=== PATIENT | female | born 1945 | race Caucasian/White ===

== ENCOUNTER 2017-05-21 10:43 | Emergency (ER) | payer MEDICARE ==
--- NOTE | 2017-05-21 12:58 | UC ---
Abdominal Pain Female HPI - HPI Summary HPI Summary: SEVERAL DAYS OF LOWER ABDOMINAL PAIN AND CRAMPING. ALSO HAS SOME LOW BACK PAIN AND NAUSEA. NO FEVER. NO PAIN WITH URINATION BUT DOES HAVE SOME FREQUENCY. - History of Current Complaint Chief Complaint: UCAbdominalPain Stated Complaint: BACK PAIN Time Seen by Provider: 05/21/17 12:35 Hx Obtained From: Patient Onset/Duration: Gradual Onset, Lasting Days, Still Present Timing: Constant Severity Initially: Moderate Severity Currently: Moderate Pain Intensity: 6 Pain Scale Used: 0-10 Numeric Location: Epigastric, Suprapubic Radiates: Yes Radiates to: Flank Character: Cramping Aggravating Factor(s): Nothing Alleviating Factor(s): Nothing Associated Signs and Symptoms: Positive: Back Pain, Urinary Symptoms, Nausea. Negative: Fever, Cough, Chest Pain, Dizzy, Constipation, Blood in Stool, Decreased Appetite, Vaginal Bleeding, Vaginal Discharge, Vomiting, Diarrhea Allergies/Adverse Reactions: Allergies Allergy/AdvReac Type Severity Reaction Status Date / Time No Known Allergies Allergy Verified 07/24/15 13:45 Home Medications: Home Medications Aspirin [Aspirin 81 MG TAB] 81 mg PO DAILY 05/21/17 [History Confirmed 05/21/17] Lisinopril TAB* [Prinivil TAB 5 MG*] 5 mg PO DAILY 05/21/17 [History Confirmed 05/21/17] Multiple Vitamin [Multivitamins] 1 cap PO DAILY 05/21/17 [History Confirmed ] PMH/Surg Hx/FS Hx/Imm Hx Cardiovascular History: Hypertension - Surgical History Surgical History: Yes Surgery Procedure, Year, and Place: CYST REMOVED FROM Back and elbow cateract- may 2015 - Family History Known Family History: Positive: Cardiac Disease, Hypertension, Diabetes - Social History Alcohol Use: Occasionally Alcohol Amount: 1-2 PER WEEK Substance Use Type: None Smoking Status (MU): Current Every Day Smoker Have You Smoked in the Last Year: No Review of Systems Constitutional: Negative Respiratory: Negative Cardiovascular: Negative Gastrointestinal: Abdominal Pain, Nausea Genitourinary: Frequency All Other Systems Reviewed And Are Negative: Yes Physical Exam Triage Information Reviewed: Yes Appearance: Well-Appearing, No Pain Distress, Well-Nourished Vital Signs: Initial Vital Signs Temp 98.1 F 05/21/17 11:29 Pulse 79 05/21/17 11:29 Resp 16 05/21/17 11:29 BP 120/75 05/21/17 11:29 Pulse Ox 99 05/21/17 11:29 Vital Signs Reviewed: Yes Eyes: Positive: Conjunctiva Clear ENT: Positive: Hearing grossly normal Neck: Positive: Supple Respiratory Exam: Normal Cardiovascular Exam: Normal Abdomen Description: Positive: Soft, CVA Tenderness (R), Guarding - WITH PALPATION SUPRAPUBIC AND EPIGASTRIC REGIONS, Other: - NO REBOUND OR RIGIDITY. Negative: CVA Tenderness (L), Distended Bowel Sounds: Positive: Present Musculoskeletal: Positive: No Edema Neurological: Positive: Alert Psychological: Positive: Age Appropriate Behavior Skin: Negative: rashes Diagnostics - Laboratory Diagnostic Studies Completed/Ordered: URINE DIP SP. GR 1.005, 1+ KETONES Abd Pain Female Course/Dx - Differential Dx/Diagnosis Differential Diagnosis: Appendicitis, Pancreatitis, Renal Colic, Urinary Tract Infection Provider Diagnoses: ABDOMINAL PAIN, NAUSEA - Physician Notification/Consults Discussed Care of Patient With: Alexi Howell - TO [facility] BY PRIVATE CAR Time Discussed With Above Provider: 13:17 Instructed by Provider To: Will See In ED Discharge - Discharge Plan Condition: Stable Disposition: AGAINST MEDICAL ADVICE Referrals: Saurav Egan MD [Primary Care Provider] - If Needed
[2017-05-21 13:15] VITALS: BP 134/83
== END 2017-05-21 13:15 | disposition left against medical advice (07) ==
LOC: UCEAST 10:43
DX: R10.13 Epigastric pain (principal); R10.30 Lower abdominal pain, unspecified; R11.0 Nausea; I10 Essential (primary) hypertension; Z72.0 Tobacco use
CPT/HCPCS: 81003; 99212; G0463

== ENCOUNTER 2017-05-21 13:35 | Emergency (ER) | payer MEDICARE ==
[2017-05-21 15:19] LABS: Hematocrit 45 % (35-47); Hemoglobin 14.9 g/dl (12.0-16.0); Mean Corpuscular HGB Conc 34 g/dl (31-36); Mean Corpuscular Hemoglobin 32 pg (27-31); Mean Corpuscular Volume 97 fL (80-97); Mean Platelet Volume 7 um3 (7.4-10.4); Red Blood Count 4.61 10^6/ul (4.0-5.4); Red Cell Distribution Width 14 % (10.5-15); White Blood Count 7.2 10^3/ul (3.5-10.8)
[2017-05-21 15:34] LABS: Albumin 4.6 g/dL (3.2-5.2); C Reactive Protein 24.75 mg/L (< 5.00); Calcium 10.1 mg/dL (8.6-10.3); EGFR African American 98.2 (>60); EGFR Non-African American 76.4 (>60); Globulin 3.5 g/dL (2-4); Potassium 3.8 mmol/L (3.5-5.0); Total Bilirubin 0.4 mg/dL (0.2-1.0); Total Protein 8.1 g/dL (6.4-8.9)
[2017-05-21 15:55] LABS: Urine Bilirubin Negative (Negative); Urine Glucose Negative (Negative); Urine Nitrite Negative (Negative)
[2017-05-21] MEDS ORDERED: Iohexol 300* (CONTRAST) 10 ML SDV IV ONE (16:27)
--- NOTE | 2017-05-21 17:11 | RAD ---
CLINICAL HISTORY: Abdominal pain COMPARISON: July 24, 2015 TECHNIQUE: Multiple contiguous axial CT scans were obtained of the abdomen and pelvis after the administration of intravenous contrast. Coronal and sagittal multiplanar reformations are submitted for review. Oral contrast was administered. Delayed images were obtained through the abdomen and pelvis. FINDINGS: LUNG BASES: The lung bases are clear. LIVER: The liver is diffusely low in attenuation compared to the spleen. There are no focal hepatic parenchymal masses. BILE DUCTS: There is no intrahepatic or extrahepatic biliary dilatation. GALLBLADDER: The gallbladder is normal, without pericholecystic inflammatory change. PANCREAS: The pancreas is normal, without mass or ductal dilatation. SPLEEN: Normal in size and appearance. UPPER GI TRACT: Evaluation of the gastrointestinal tract is limited by incomplete gastric distention. The upper GI tract is unremarkable. SMALL BOWEL AND MESENTERY: The small bowel is normal in contour, course, and caliber. There is no obstruction or dilatation. There is a fat attenuation lesion of the intraperitoneal fat inferiorly and anteriorly measuring approximately 7.4 x 2.6 x 6.6 cm in size. This hematoma identified retrospectively the previous examination and has slightly increased size of mild stranding of the fat. COLON: The colon is normal in contour, course, caliber. There is no pericolonic inflammatory change. There is a tubular, vermiform, hollow viscus that is blind ending, and originates from the cecum, consistent with a normal appendix. There is no periappendiceal inflammatory change. This is best seen on axial images 54 through 59 ADRENALS: Normal bilaterally. KIDNEYS: The kidneys are normal in shape, size, contour, and axis. There is no hydronephrosis or nephrolithiasis. BLADDER: The bladder is incompletely distended but is grossly normal. PELVIC ORGANS: The uterus and adnexa are grossly normal for technique. AORTA: There is calcific atherosclerotic disease of the abdominal aorta and its branches, without aneurysmal dilatation IVC: Unremarkable LYMPH NODES: There is no lymphadenopathy by size criteria. ABDOMINAL WALL: There is no evidence for abdominal wall hernia. BONES AND SOFT TISSUES: Mild degenerative changes are noted. OTHER: None IMPRESSION: 1. THERE IS A FATTY LESION OF THE MESENTERIC FAT INFERIORLY AND ANTERIORLY MEASURING UP TO 7.4 CM IN SIZE. 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 THERE IS MILD STRANDING OF THE FAT WHICH MAY SUGGEST SOME DEGREE OF ASSOCIATED INFLAMMATION, INCLUDING TORSION OF THE LIPOMA. 2. ATHEROSCLEROSIS 3. FATTY LIVER
[2017-05-21] MEDS ORDERED: Ketorolac INJ* 30 MG/ML 1 ML VIAL IV PUSH PRN (17:52)
[2017-05-21 18:37] VITALS: BP 148/77
--- NOTE | 2017-05-21 18:52 | ED ---
Vanita Avalos Alfonso, scribed for Jorge Luis Mcgrath MD on 05/21/17 at 1420 . Abdominal Pain/Female - HPI Summary HPI Summary: This patient is a 72 year old F presenting to [facility] with a chief complaint of lower abdominal pain since 4 days ago. Pt states originally I thought I just had gas. The CC is described as sharp. Pt rates the pain 5/10 in severity. Symptoms aggravated by touch and alleviated by nothing. Pt reports nausea. Pt denies vomiting, diarrhea, constipation, and loss of appetite. She was referred to the ED from [facility] after an evaluation. Last BM this morning. Tobacco abuse disorder. - History of Current Complaint Chief Complaint: EDAbdPain Stated Complaint: ABD PAIN Time Seen by Provider: 05/21/17 14:10 Hx Obtained From: Patient Onset/Duration: Sudden Onset, Lasting Days - 4, Still Present Timing: Constant Severity Initially: Moderate Severity Currently: Moderate Pain Intensity: 5 Pain Scale Used: 0-10 Numeric Location: Other - Lower Character: Sharp Aggravating Factor(s): Other: - Touch Alleviating Factor(s): Nothing Associated Signs and Symptoms: Positive: Nausea. Negative: Constipation, Decreased Appetite, Vomiting, Diarrhea Allergies/Adverse Reactions: Allergies Allergy/AdvReac Type Severity Reaction Status Date / Time No Known Allergies Allergy Verified 05/21/17 13:55 Home Medications: Home Medications Aspirin EC Low Dose* [Ecotrin EC Low Dose 81 MG*] 81 mg PO DAILY 05/21/17 [ History Confirmed 05/21/17] Multivitamins/Minerals TAB* [Theragran/minerals TAB*] 1 tab PO DAILY 05/21/17 [ History Confirmed 05/21/17] PMH/Surg Hx/FS Hx/Imm Hx Endocrine/Hematology History: Denies: Hx Diabetes Cardiovascular History: Reports: Hx Hypertension Denies: Hx Congestive Heart Failure, Hx Pacemaker/ICD, Other Cardiovascular Problems/Disorders GI History: Denies: Other GI Disorders History: Denies: Hx Renal Disease Musculoskeletal History: Denies: Hx Osteoporosis Sensory History: Reports: Hx Cataracts - PARRISH, Hx Contacts or Glasses - GLASSES Denies: Hx Hearing Aid Opthamlomology History: Reports: Hx Cataracts - PARRISH, Hx Contacts or Glasses - GLASSES Neurological History: Denies: Other Neuro Impairments/Disorders Psychiatric History: Denies: Hx Panic Disorder - Cancer History Hx Chemotherapy: No Hx Radiation Therapy: No - Surgical History Surgery Procedure, Year, and Place: CYST REMOVED FROM Back and elbow cateract- may 2015 Hx Anesthesia Reactions: No Infectious Disease History: No Infectious Disease History: Denies: Hx Clostridium Difficile, Hx Hepatitis, Hx Human Immunodeficiency Virus (HIV), Hx of Known/Suspected MRSA, Hx Shingles, Hx Tuberculosis, Hx Known/ Suspected VRE, Hx Known/Suspected VRSA, History Other Infectious Disease, Traveled Outside the [place] in Last 30 Days - Family History Known Family History: Positive: Cardiac Disease, Hypertension, Diabetes - Social History Alcohol Use: Occasionally Alcohol Amount: 1-2 PER WEEK Substance Use Type: Reports: None Smoking Status (MU): Current Every Day Smoker Have You Smoked in the Last Year: No Review of Systems Negative: Fever Positive: Abdominal Pain - Sharp lower, Nausea, Other - Negative constipation and loss of appetite. Negative: Vomiting, Diarrhea All Other Systems Reviewed And Are Negative: Yes Physical Exam - Summary Physical Exam Summary: VITAL SIGNS: Reviewed. GENERAL: Patient is a well-developed and nourished female who is lying comfortable in the stretcher. Patient is not in any acute respiratory distress. HEAD AND FACE: Normocephalic and atraumatic. EYES: PERRLA, EOMI x 2, No injected conjunctiva. EARS: Hearing grossly intact. Ear canals and tympanic membranes are WNL. MOUTH: Oropharynx within normal limits. NECK: Supple, trachea is midline, no adenopathy, no JVD. CHEST: Symmetric, no tenderness at palpation LUNGS: Clear to auscultation bilaterally. No wheezing or crackles. CVS: RRR, S1 and S2 present, no murmurs or gallops appreciated. ABDOMEN: Soft. RLQ tenderness. No signs of distention. Positive bowel sounds. No rebound no guarding, and no masses palpated. No abdominal bruit or pulsations. EXTREMITIES: FROM in all major joints, no edema, no cyanosis or clubbing. NEURO: Alert and oriented x 3. No acute neurological deficits. Speech is normal. SKIN: Dry and warm Triage Information Reviewed: Yes Vital Signs On Initial Exam: Initial Vitals Temp Pulse Resp BP Pulse Ox 98.4 F 88 20 141/83 92 05/21/17 13:45 05/21/17 13:45 05/21/17 13:45 05/21/17 13:45 05/21/17 13:45 Vital Signs Reviewed: Yes - Muriel Coma Scale Coma Scale Total: 15 Diagnostics - Vital Signs Vital Signs Temp Pulse Resp BP Pulse Ox 05/21/17 13:53 96.9 F 88 16 143/83 94 05/21/17 13:45 98.4 F 88 20 141/83 92 - Laboratory Lab Results: Lab Results 05/21/17 05/21/17 05/21/17 Range/Units 15:05 15:05 15:05 WBC 7.2 (3.5-10.8) 10^3/ul RBC 4.61 (4.0-5.4) 10^6/ul Hgb 14.9 (12.0-16.0) g/dl Hct 45 (35-47) % MCV 97 (80-97) fL MCH 32 H (27-31) pg MCHC 34 (31-36) g/dl RDW 14 (10.5-15) % Plt Count 382 (150-450) 10^3/ul MPV 7 L (7.4-10.4) um3 Neut % (Auto) 50.2 (38-83) % Lymph % (Auto) 35.1 (25-47) % [place] % (Auto) 13.6 H (1-9) % Eos % (Auto) 0.4 (0-6) % Baso % (Auto) 0.7 (0-2) % Absolute Neuts (auto) 3.6 (1.5-7.7) 10^3/ul Absolute Lymphs (auto) 2.5 (1.0-4.8) 10^3/ul Absolute Monos (auto) 1.0 H (0-0.8) 10^3/ul Absolute Eos (auto) 0 (0-0.6) 10^3/ul Absolute Basos (auto) 0.1 (0-0.2) 10^3/ul Absolute Nucleated RBC 0 10^3/ul Nucleated RBC % 0 Sodium 135 (133-145) mmol/L Potassium 3.8 (3.5-5.0) mmol/L Chloride 96 L (101-111) mmol/L Carbon Dioxide 29 (22-32) mmol/L Anion Gap 10 (2-11) mmol/L BUN 15 (6-24) mg/dL Creatinine 0.75 (0.51-0.95) mg/dL Est GFR ( Amer) 98.2 (>60) Est GFR (Non-Af Amer) 76.4 (>60) BUN/Creatinine Ratio 20.0 (8-20) Glucose 99 (70-100) mg/dL Lactic Acid 0.9 (0.5-2.0) mmol/L Calcium 10.1 (8.6-10.3) mg/dL Total Bilirubin 0.40 (0.2-1.0) mg/dL AST 17 (13-39) U/L ALT 13 (7-52) U/L Alkaline Phosphatase 57 (34-104) U/L C-Reactive Protein 24.75 H (< 5.00) mg/L Total Protein 8.1 (6.4-8.9) g/dL Albumin 4.6 (3.2-5.2) g/dL Globulin 3.5 (2-4) g/dL Albumin/Globulin Ratio 1.3 (1-3) Lipase 13 (11.0-82.0) U/L Urine Color Urine Appearance Urine pH (5-9) Ur Specific [place] (1.010-1.030) Urine Protein (Negative) Urine Ketones (Negative) Urine Blood (Negative) Urine Nitrate (Negative) Urine Bilirubin (Negative) Urine Urobilinogen (Negative) Ur Leukocyte Esterase (Negative) Urine Glucose (Negative) 05/21/17 Range/Units 15:40 WBC (3.5-10.8) 10^3/ul RBC (4.0-5.4) 10^6/ul Hgb (12.0-16.0) g/dl Hct (35-47) % MCV (80-97) fL MCH (27-31) pg MCHC (31-36) g/dl RDW (10.5-15) % Plt Count (150-450) 10^3/ul MPV (7.4-10.4) um3 Neut % (Auto) (38-83) % Lymph % (Auto) (25-47) % [place] % (Auto) (1-9) % Eos % (Auto) (0-6) % Baso % (Auto) (0-2) % Absolute Neuts (auto) (1.5-7.7) 10^3/ul Absolute Lymphs (auto) (1.0-4.8) 10^3/ul Absolute Monos (auto) (0-0.8) 10^3/ul Absolute Eos (auto) (0-0.6) 10^3/ul Absolute Basos (auto) (0-0.2) 10^3/ul Absolute Nucleated RBC 10^3/ul Nucleated RBC % Sodium (133-145) mmol/L Potassium (3.5-5.0) mmol/L Chloride (101-111) mmol/L Carbon Dioxide (22-32) mmol/L Anion Gap (2-11) mmol/L BUN (6-24) mg/dL Creatinine (0.51-0.95) mg/dL Est GFR ( Amer) (>60) Est GFR (Non-Af Amer) (>60) BUN/Creatinine Ratio (8-20) Glucose (70-100) mg/dL Lactic Acid (0.5-2.0) mmol/L Calcium (8.6-10.3) mg/dL Total Bilirubin (0.2-1.0) mg/dL AST (13-39) U/L ALT (7-52) U/L Alkaline Phosphatase (34-104) U/L C-Reactive Protein (< 5.00) mg/L Total Protein (6.4-8.9) g/dL Albumin (3.2-5.2) g/dL Globulin (2-4) g/dL Albumin/Globulin Ratio (1-3) Lipase (11.0-82.0) U/L Urine Color Straw Urine Appearance Clear Urine pH 5.0 (5-9) Ur Specific [place] 1.008 L (1.010-1.030) Urine Protein Negative (Negative) Urine Ketones Trace H (Negative) Urine Blood Negative (Negative) Urine Nitrate Negative (Negative) Urine Bilirubin Negative (Negative) Urine Urobilinogen Negative (Negative) Ur Leukocyte Esterase Negative (Negative) Urine Glucose Negative (Negative) Result Diagrams: 05/21/17 15:05 05/21/17 15:05 Lab Statement: Any lab studies that have been ordered have been reviewed, and results considered in the medical decision making process. - CT CT A/P CT Interpretation Completed By: Radiologist - 1. THERE IS A FATTY LESION OF THE MESENTERIC FAT INFERIORLY AND ANTERIORLY MEASURING UP TO 7.4 CM IN SIZE. 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 THERE IS MILD STRANDING OF THE FAT WHICH MAY SUGGEST SOME DEGREE OF ASSOCIATED INFLAMMATION, INCLUDING TORSION OF THE LIPOMA. 2. ATHEROSCLEROSIS 3. FATTY LIVER - EKG 1354 Cardiac Rate: NL - BPM 76 EKG Rhythm: Sinus Rhythm EKG Interpretation: No ST elevation Re-Evaluation - Re-Evaluation First Eval Re-Evaluation Time: 18:17 Comment: Pt has no complains. Reviewed labs and imaging. Abdominal Pain Fem Course/Dx - Course Course Of Treatment: This patient is a 72 year old F presenting to [facility] with a chief complaint of lower abdominal pain since 4 days ago. Pt states originally I thought I just had gas. The CC is described as sharp. Pt rates the pain 5/10 in severity. Symptoms aggravated by touch and alleviated by nothing. Pt reports nausea. Pt denies vomiting, diarrhea, constipation, and loss of appetite. She was referred to the ED from [facility] after an evaluation. Last BM this morning. Tobacco abuse disorder. Test results with no significant abnormalities except CRP of 24.7. Urinalysis negative for UTI. In the ED course patient given toradol which improved her symptoms. I discussed the findings and test results with Dr. Joe Enriquez (surgeon) who stated there is no necessary surgical intervention at this time. CT A/P reveals A FATTY LESION OF THE MESENTERIC FAT INFERIORLY AND ANTERIORLY MEASURING UP TO 7.4 CM IN SIZE. 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 THERE IS MILD STRANDING OF THE FAT WHICH MAY SUGGEST SOME DEGREE OF ASSOCIATED INFLAMMATION, INCLUDING TORSION OF THE LIPOMA. 2. ATHEROSCLEROSIS 3. FATTY LIVER. Dr. Enriquez recommends discharge and follow up at his office if the pain continues. The patient understands and agrees. Patient is hemodynamically stable and A&Ox3. All questions were answered at patient satisfaction. There were no further complaints or concerns. Lung exam before discharge: CTA B/L. Good air exchange. No wheezing or crackles heard. CVS: S1 and S2 present. No murmurs appreciated. Patient is alert and oriented x 3. Patient is hemodynamically stable. Patient will be discharged home with follow up PCP in the next 2-3 days - Diagnoses Differential Diagnosis: Positive: Appendicitis, Constipation, Diverticulitis, Urinary Tract Infection Provider Diagnoses: Abdominal pain - Provider Notifications Discussed Care Of Patient With: Joe Enriquez Time Discussed With Above Provider: 18:10 Instructed by Provider To: Other - Consulted Dr. Joe Enriquez (surgeon) at 1810 who stated there is no necessary surgical intervention after reviewing the CT results. Discharge - Discharge Plan Condition: Stable Disposition: HOME Prescriptions: Naproxen TAB* [Naprosyn 250 mg TAB*] 500 mg PO Q8H PRN #20 tab PRN Reason: Pain Patient Education Materials: Abdominal Pain (ED) Referrals: Saurav Egan MD [Primary Care Provider] - 3 Days Joe Enriquez MD [Medical Doctor] - 3 Days The documentation as recorded by the Vanita sheffield Alfonso accurately reflects the service I personally performed and the decisions made by , Jorge Luis Mcgrath MD.
== END 2017-05-21 18:40 | disposition home or self-care (01) ==
LOC: ED 13:35
DX: R10.30 Lower abdominal pain, unspecified (principal); R11.0 Nausea; I10 Essential (primary) hypertension; Z79.82 Long term (current) use of aspirin; F17.210 Nicotine dependence, cigarettes, uncomplicated
CPT/HCPCS: 36415; 74177; 80053; 81003; 83605; 83690; 85025; 86140; 93005; 96374; 99282; J1885; Q9967

== ENCOUNTER 2018-03-10 08:29 | Day surgery (SDC) | payer MEDICARE ==
--- NOTE | 2018-03-02 10:59 | HP ---
AMENDED REPORT NOW INCLUDES COSIGNER DESIGNATION - ESIGNED BEFORE ADJUSTMENT CC: Dr. Saurav Egan * ADMISSION HISTORY AND PHYSICAL: DATE OF ADMISSION: 03/10/18 ATTENDING SURGEON: Dr. Joe Enriquez.* (DICTATED BY CESAR BRYANT) CHIEF COMPLAINT: Intraabdominal lipoma. HISTORY OF PRESENT ILLNESS: This is a 73-year-old female, who back in the late summer of 2016 experienced left lower abdominal pain that was fairly severe. She had a CT scan done on 05/21/17 showing a 7.4 x 2.6 x 6.6 cm mass consistent with lipoma in the inferior anterior abdominal wall possibly within the mesentery or omentum. Her pain resolved and she deferred further intervention at that time. She has continued to have some minor pressure and discomfort related to the left lower abdomen particularly after more strenuous activity. She also notes some pressure on her bladder if her bladder is full. She has otherwise not had any other GI or symptoms. She occasionally notes a bulge in the left lower abdomen when this occurs. More recently, repeat ultrasound on 02/16/18 showed a 4.9 x 2.5 x 5.6 cm mass consistent with lipoma in the left lower abdomen, slightly decreased from last ultrasound measurement. The patient has met with Dr. Enriquez both back in August and more recently on 02/19/18. He has discussed these findings with the patient as well as her symptoms. She understands the indications for surgery, the risks, benefits and alternatives and would like to proceed as scheduled with laparoscopic excision of intraabdominal lipoma. PAST MEDICAL HISTORY: Hypertension, active smoker. PAST SURGICAL HISTORY: Tonsillectomy remotely, cyst excision, bilateral cataracts. CURRENT MEDICATIONS: 1. Aspirin 81 mg once daily, which she will stop 10 days prior to surgery. 2. Hydrochlorothiazide 12.5 mg once daily. 3. Multivitamin once daily. 4. Aleve p.r.n. DRUG ALLERGIES: LISINOPRIL (cough). FAMILY HISTORY: Negative for anesthesia problems, bleeding or clotting disorders. SOCIAL HISTORY: The patient lives alone. She is fairly active doing yard work and gardening. She is a retired financial analysis advisor. She smokes between one- half and 3 quarters of a pack per day for the past 50 plus years. She is strongly encouraged in terms of smoking cessation. She drinks on average 3 to 4 drinks per week. She denies other recreational drug use. REVIEW OF SYSTEMS: General: No recent constitutional symptoms or acute illnesses. Integument: No rashes or skin lesions of concern. Eyes: No recent changes in vision. Ears, Nose, Throat: No problems reported. Cardiovascular: No chest pain or palpitations. She is treated for hypertension. Respiratory : She is an active smoker. She denies shortness of breath. GI: As above per HPI. She does undergo colonoscopy approximately every 3 years and is due for her next exam. She has had benign polyps removed in the past with no interval symptoms noted. : No problems reported. Endocrine: No diabetes or thyroid dysfunction. MANAGER LINE: She is up-to-date for breast and pelvic exams. Her most recent mammogram was within the past year with no interval problems reported. Neuro/Psych: No problems reported. PHYSICAL EXAMINATION GENERAL: Well-nourished, well-developed female, in no acute distress. VITAL SIGNS: Height 65 inches, weight 144 pounds. Blood pressure 130/58, pulse 78, respirations 18. HEENT: Pupils are equal, round, and reactive. EOMs intact. No conjunctival pallor. Oropharynx: She has full upper and lower dentures. No intraoral lesions. NECK: No lymphadenopathy, thyromegaly, or masses. LUNGS: Clear to auscultation. No rales or wheezes. HEART: Regular rate and rhythm. No murmur noted. BREASTS: Not examined. ABDOMEN: Soft, nontender to palpation. No clearly definable palpable masses. No palpable organomegaly. GENITALIA: Not done. RECTAL: Not done. BACK: No spinous process or CVA tenderness. EXTREMITIES: No edema. NEUROLOGIC: Grossly intact. SKIN: Warm and dry. No suspicious rashes or lesions. IMPRESSION: Intraabdominal lipoma. PLAN: Laparoscopic excision, intraabdominal lipoma. CESAR BRYANT [id number]/[facility] #: [id number] [facility]IATRIC CENTERHeena
[~2018-03-10 08:29] MED LIST: Buffered Lidocaine 0.9% SYRIN* 5 ML/SYR SYRINGE INTRADERM ONE; Famotidine TAB* 20 MG PO ONE
[2018-03-10] MEDS ORDERED: Famotidine TAB* 20 MG ONE (08:50)
[2018-03-10] MEDS ORDERED: fentaNYL* 50 MCG/ML 2 ML VIAL (100 MCG VIAL) ONE ×3 (09:01→12:19)
[2018-03-10] MEDS ORDERED: Midazolam* 1 MG/ML 5 ML VIAL (5 MG) ONE (09:02)
[2018-03-10] MEDS ORDERED: Rocuronium* 10 MG/ML VIAL ONE (09:02)
[2018-03-10] MEDS ORDERED: Ketorolac INJ* 30 MG/ML 1 ML VIAL ONE (10:13)
[2018-03-10] MEDS ORDERED: DiMENhydriNATE IV* 50 MG/ML VIAL ONE (10:13)
[2018-03-10] MEDS ORDERED: Succinylcholine* 20 MG/ML 10 ML VIAL ONE (10:13)
[2018-03-10] MEDS ORDERED: Dexamethasone IV* 4 MG/ML 1 ML (4 MG) ONE (10:13)
[2018-03-10] MEDS ORDERED: Propofol* 10 MG/ML 20 ML BTL IV PUSH ONE (10:13)
[2018-03-10] MEDS ORDERED: Bupivacaine 0.25% SDV* 30 ML ONE (10:35)
[2018-03-10] MEDS ORDERED: Levalbuterol 0.63MG/3ML NEB* UNIT OF USE INH PRN (11:59)
[2018-03-10] MEDS ORDERED: Acetaminophen TAB* 325 MG PO PRN (11:59)
[2018-03-10] MEDS ORDERED: HYDROmorphone INJ* 1 MG/ML CARPUJECT SYRINGE IV PRN (11:59)
[2018-03-10] MEDS ORDERED: DiMENhydriNATE IV* 50 MG/ML VIAL IV PUSH PRN (11:59)
[2018-03-10] MEDS ORDERED: Naloxone* 0.4 MG/ML 1 ML VIAL IV PRN (11:59)
--- NOTE | 2018-03-10 12:45 | OP ---
Operative Report - Blank - Operative Report Date of Operation: 03/10/18 Note: Preop Dx: intra-abdominal lipoma Postop Dx: same Procedure: laparoscopic excision intra-abdominal lipoma Anesthesia: GET Surgeon: Zoe Asst: CESAR Abrams Fluids: 1400ml crystalloid EBL: < 10 ml Drains: none Specimen: intra-abdominal lipoma Findings dictated
[2018-03-10] MEDS ORDERED: HYDROcodone/ACETAMIN 5-325 MG* 1 TAB PO PRN (12:46)
[2018-03-10] MEDS ORDERED: Acetaminophen TAB* 325 MG ONE (13:40)
[2018-03-10 15:28] VITALS: BP 95/76
--- NOTE | 2018-03-11 12:49 | OP ---
CC: Saurav Egan MD * DATE OF OPERATION: 03/10/18 - [facility] DATE OF : 49 SURGEON: Joe Enriquez MD. TYRE FITTER: CESAR Palma. ANESTHESIOLOGIST: Dr. Ny. ANESTHESIA: General endotracheal. PRE-OP DIAGNOSIS: Intraabdominal lipoma. POST-OP DIAGNOSIS: Intraabdominal lipoma. OPERATIVE PROCEDURE: Laparoscopic excision of intraabdominal lipoma. ESTIMATED BLOOD LOSS: Minimal. IV FLUIDS: Crystalloids. SPECIMEN: Intraabdominal lipoma (omentum). DRAINS: None. COMPLICATIONS: None. COUNTS: Instrument, needle, and sponge counts were correct. DESCRIPTION OF PROCEDURE: The patient was brought to the operating room and placed on the table supine. Sequential compression devices were placed on both lower extremities and general anesthesia was administered. Vo catheter was placed. She was positioned and padded appropriately, and prepped and draped in the usual sterile fashion. A time-out was performed. Local anesthetic was infiltrated into the skin and soft tissue prior to making each incision. A transumbilical incision was used with an open technique and a 5-mm optical trocar to access the peritoneal cavity. Carbon dioxide was insufflated to a pressure of 15 mmHg. Under direct visualization 5-mm trocars were placed in the right upper quadrant and right lower quadrant. Inspection in the lower abdomen revealed an omental mass adherent to the parietal peritoneum and this appeared to be the mass identified on imaging studies. It appeared to be intermittently involved with omentum. The mass was quite smooth and was able to be dissected free from the parietal peritoneum and the area over the bladder using a blunt dissection and LigaSure. The mass was intermittently involved with the omentum and the omentum was divided to remove the mass using a LigaSure to perform the division. Once the mass was freed, it was placed into an endoscopic retrieval bag and retrieved through the umbilical wound, which was enlarged to accommodate the mass. Despite enlarging it, the mass was too large to be easily removed and therefore the bag was opened externally and the mass was ruptured and removed in piecemeal fashion. Eventually, the entire specimen bag was removed with the remaining portion of the specimen and inspection of the abdominal cavity revealed hemostasis to be excellent. Ports were removed under direct visualization. The carbon dioxide was released and the umbilical wound, which had been then enlarged, was then closed with a series of interrupted [id number] and simple sutures with 0 Vicryl. Skin was closed with 4-0 Monocryl in a subcuticular fashion. Steri- Strips were applied. The patient tolerated this procedure well and was extubated and transferred to the recovery room in stable condition. [id number]/CPS #: [id number] MTDD
== END 2018-03-10 15:29 | disposition home or self-care (01) ==
LOC: OR 08:29
PROVIDERS: ATTEND Surgery
DX: D17.5 Benign lipomatous neoplasm of intra-abdominal organs (principal); I10 Essential (primary) hypertension; F17.210 Nicotine dependence, cigarettes, uncomplicated; Z79.82 Long term (current) use of aspirin
CPT/HCPCS: 88304; 93005; A9270-GY; J0330; J1100; J1240; J1885; J2250; J2704; J3010

== ENCOUNTER 2019-04-23 14:57 | Emergency (ER) | payer MEDICARE ==
[2019-04-23 15:34] VITALS: BP 148/81
--- NOTE | 2019-04-23 16:53 | UC ---
Back Pain HPI - History of Current Complaint Chief Complaint: UCBackPain Stated Complaint: BACK PAIN Time Seen by Provider: 04/23/19 16:52 Pain Intensity: 6 - Allergies/Home Medications Allergies/Adverse Reactions: Allergies Allergy/AdvReac Type Severity Reaction Status Date / Time lisinopril Allergy Coughing Verified 04/23/19 15:34 Home Medications: Home Medications Acetaminophen [Tylenol] 325 mg PO Q6HR PRN 04/23/19 [History Confirmed 04/23/19] Azelastine HCl 137 mcg INH BID 04/23/19 [History Confirmed 04/23/19] Fluticasone Propionate 5 mg PO BID 04/23/19 [History Confirmed 04/23/19] Omeprazole/Sodium Bicarbonate [Omeppi 40 mg-1,100 mg Capsule] 1 cap PO DAILY [History Confirmed 04/23/19] PMH/Surg Hx/FS Hx/Imm Hx - Surgical History Surgical History: Yes Surgery Procedure, Year, and Place: CYST REMOVED FROM Back and elbow , [facility]. cataract-may 2015, [place]. tonsilectomy, age 32,benign mass LLQ - Family History Known Family History: Positive: Cardiac Disease, Hypertension, Diabetes - Social History Alcohol Use: Occasionally Alcohol Amount: 1-2 PER WEEK Substance Use Type: None Smoking Status (MU): Current Every Day Smoker Amount Used/How Often: pack a day for 50 lpus years Have You Smoked in the Last Year: No Physical Exam Vital Signs: Initial Vital Signs Temp 98.6 F 04/23/19 15:27 Pulse 81 04/23/19 15:27 Resp 14 04/23/19 15:27 BP 148/81 04/23/19 15:27 Pulse Ox 95 04/23/19 15:27 Discharge - Discharge Plan Referrals: Saurav Egan MD [Primary Care Provider] -
--- NOTE | 2019-04-23 17:07 | UC ---
Back Pain HPI - HPI Summary HPI Summary: 74 y/o female presents to the urgent care c/o If symptoms do not improve or worsen advised to return to the urgent care or f/ u with her PCP for further evaluation and treatment. Pt understood and agreed with plan of care - History of Current Complaint Chief Complaint: UCBackPain Stated Complaint: BACK PAIN Time Seen by Provider: 04/23/19 16:52 Hx Obtained From: Patient Pain Intensity: 6 - Allergies/Home Medications Allergies/Adverse Reactions: Allergies Allergy/AdvReac Type Severity Reaction Status Date / Time lisinopril Allergy Coughing Verified 04/23/19 15:34 Home Medications: Home Medications Acetaminophen [Tylenol] 325 mg PO Q6HR PRN 04/23/19 [History Confirmed 04/23/19] Azelastine HCl 137 mcg INH BID 04/23/19 [History Confirmed 04/23/19] Fluticasone Propionate 5 mg PO BID 04/23/19 [History Confirmed 04/23/19] Omeprazole/Sodium Bicarbonate [Omeppi 40 mg-1,100 mg Capsule] 1 cap PO DAILY [History Confirmed 04/23/19] PMH/Surg Hx/FS Hx/Imm Hx - Surgical History Surgical History: Yes Surgery Procedure, Year, and Place: CYST REMOVED FROM Back and elbow , [facility]. [facility]-may 2015, [place]. tonsilectomy, age 32,benign mass LLQ - Family History Known Family History: Positive: Cardiac Disease, Hypertension, Diabetes - Social History Alcohol Use: Occasionally Alcohol Amount: 1-2 PER WEEK Substance Use Type: None Smoking Status (MU): Current Every Day Smoker Amount Used/How Often: pack a day for 50 lpus years Have You Smoked in the Last Year: No Physical Exam - Summary Physical Exam Summary: Vital Signs Reviewed: Yes Appearance: Well-Appearing, Well-Nourished, female sitting in the examining table w/o any apparent distress. Eyes: Positive: Conjunctiva Clear - PERRLA, EOMI. ENT: Positive: Normal ENT inspection, Hearing grossly normal, Pharynx normal, TMs normal, Uvula midline Neck: Positive: Supple, Nontender, No Lymphadenopathy Respiratory: Positive: Chest non-tender, Lungs clear, Normal breath sounds, No respiratory distress Cardiovascular: Positive: RRR, No Murmur, Pulses Normal, Brisk Capillary Refill Abdomen Description: Positive: Nontender, No Organomegaly, Soft. Negative: CVA Tenderness (R), CVA Tenderness (L) Bowel Sounds: Positive: Present Musculoskeletal: Positive: Strength Intact, BACK: Patient walked into the urgent care room with symmetric ambulation, No signs of limping, antalgic, able to bear weight. No signs of trauma, No masses palpated. Point tenderness at the level of L2-S1, No CVAT, no flank ecchymosis . No sacroiliac notch tenderness, No saddle anesthesia.ROM: limited due to pain, Straight Leg Raise: negative. Patellar reflexes: brisk, symmetric Muscle strength lower extremities. Dorsiflexion/ plantar flexion of ankles. Heel/ toe walk. Lower extremities: Femoral, popliteal, posterior tibial, and dorsalis pedis pulses WNL. Pt refuse rectal exam Neurological: Positive: Alert, Muscle Tone Normal Psychological Exam: Normal Skin Exam: Normal Triage Information Reviewed: Yes Vital Signs: Initial Vital Signs Temp 98.6 F 04/23/19 15:27 Pulse 81 04/23/19 15:27 Resp 14 04/23/19 15:27 BP 148/81 04/23/19 15:27 Pulse Ox 95 04/23/19 15:27 Back Pain Course/Dx - Differential Dx/Diagnosis Differential Diagnosis/HQI/PQRI: Arthritis, Compressive Cord Syndrome, Fracture , Herniated Disc, Renal Colic, Strain, Sprain Provider Diagnosis: Degenerative disc disease, lumbar, Spasm of back muscles, Uncontrolled hypertension Discharge - Sign-Out/Discharge Documenting (check all that apply): Patient Departure - D/C home All imaging exams completed and their final reports reviewed: No Studies - Discharge Plan Condition: Stable Disposition: HOME Prescriptions: Cyclobenzaprine TAB* [Flexeril 10 MG TAB*] 10 mg PO TID PRN #21 tab PRN Reason: Spasms - Back HYDROcodone/ACETAMIN 5-325 MG* [Swanquarter 5-325 TAB*] 1 tab PO Q8H PRN #9 tab MDD 1g /4hr-4g/day PRN Reason: Pain methylPREDNISolone [Medrol Dosepak 4 MG*] 4 mg PO .SEE JENNIFER INSTRUCTION #1 jennifer Patient Education Materials: Low Back Strain (ED), Degenerative Disc Disease ( ED) Referrals: Saurav Egan MD [Primary Care Provider] - 3 Days Additional Instructions: 1- Please take Swanquarter PO as directed for pain. Medrol dose jennifer as directed to alleviate symptoms 2- Take Flexeril PO as directed for muscle spasm. Please do not drive while taking the medication. 3- Avoid strenuous exercise or heavy lifting. Please wear a back support 4- Since you declined Lumbar X-rays, Please call Spinal Nurse Navigator: Celia Salgado: [phone] as soon as possible for further management of your Degenerative disc disease. 5- Your BP is elevated today. please decrease salt in your diet, monitor BP and if it continues to be elevated please f/u with your PCP for further management. - Billing Disposition and Condition Condition: STABLE Disposition: Home
== END 2019-04-23 18:00 | disposition home or self-care (01) ==
LOC: UCEAST 14:57
DX: M51.36 Other intervertebral disc degeneration, lumbar region (principal); M62.830 Muscle spasm of back; I10 Essential (primary) hypertension; F17.210 Nicotine dependence, cigarettes, uncomplicated
CPT/HCPCS: 99212; G0463

== ENCOUNTER 2021-06-22 13:51 | Inpatient (IN) ==
[2021-06-22 15:10] LABS: Hematocrit 42 % (35-47); Hemoglobin 13.8 g/dL (12.0-16.0); Mean Corpuscular HGB Conc 33 g/dL (31-36); Mean Corpuscular Hemoglobin 32 pg (27-31); Mean Corpuscular Volume 96 fL (80-97); Mean Platelet Volume 8.4 fL (7.4-10.4); Platelet Count 297 10^3/uL (150-450); Red Blood Count 4.37 10^6 /uL (3.70-4.87); Red Cell Distribution Width 14 % (10-15); White Blood Count 32.9 10^3/uL (3.5-10.8)
[2021-06-22 15:18] LABS: ABS Neutrophils 29.1 10^3/ul (1.5-7.7)
[2021-06-22 15:31] LABS: Albumin/Globulin Ratio 1.5 (1-3); Calcium 9.5 mg/dL (8.6-10.3); EGFR African American 65.6 (>60); EGFR Non-African American 54.2 (>60); Globulin 2.6 g/dL (2-4); Magnesium 1.8 mg/dL (1.9-2.7); Potassium 4.1 mmol/L (3.5-5.0); Total Bilirubin 0.3 mg/dL (0.2-1.0); Total Protein 6.6 g/dL (6.4-8.9)
[2021-06-22 16:46] LABS: RBC Morphology Normal (Normal)
[2021-06-22 16:48] LABS: ABS Lymphocytes 1.2 10^3/ul (1.0-4.8); ABS Monocytes 2.5 10^3/ul (0-0.8); Lymphocyte % 3.8 %
[2021-06-22] MEDS ORDERED: Ondansetron 4 mg VIAL 2 MG/ML 2 ml VIAL IV PRN (18:10)
[2021-06-22] MEDS ORDERED: Morphine 2 MG/ML SYRINGE IV PRN (18:16)
[2021-06-22] MEDS: NS 0.9% 1000 ml BAG 1,000 ML IV SCH (20:04)
[2021-06-23] MEDS: Enoxaparin 40 MG/0.4 ML SYR SUBCUT SCH ×2 (00:33→21:44)
[2021-06-23 06:57] LABS: Hematocrit 37 % (35-47); Mean Corpuscular HGB Conc 33 g/dL (31-36); Mean Corpuscular Hemoglobin 32 pg (27-31); Mean Corpuscular Volume 96 fL (80-97); Mean Platelet Volume 8.5 fL (7.4-10.4); Platelet Count 268 10^3/uL (150-450); Red Blood Count 3.82 10^6 /uL (3.70-4.87); Red Cell Distribution Width 14 % (10-15); White Blood Count 36.6 10^3/uL (3.5-10.8)
[2021-06-23 07:00] LABS: Albumin 3.1 g/dL (3.2-5.2); Calcium 7.9 mg/dL (8.6-10.3); EGFR African American 95.8 (>60); EGFR Non-African American 79.2 (>60); Globulin 1.8 g/dL (2-4); Potassium 3.5 mmol/L (3.5-5.0); Total Protein 4.9 g/dL (6.4-8.9)
[2021-06-23 07:01] LABS: Albumin/Globulin Ratio 1.7 (1-3); Total Bilirubin 0.2 mg/dL (0.2-1.0)
[2021-06-23] MEDS: NS 0.9% 1000 ml BAG 1,000 ML IV SCH ×2 (07:11→17:03)
[2021-06-23 07:27] LABS: RBC Morphology Normal (Normal)
[2021-06-23 07:28] LABS: ABS Neutrophils 29.3 10^3/ul (1.5-7.7)
[2021-06-23] MEDS ORDERED: Pantoprazole VIAL 40 MG VIAL IV SCH (09:00)
[2021-06-23] MEDS ORDERED: Magnesium Sulfate 2 gm BAG 2 GM/50 ML BAG IVPB ONE (10:51)
[2021-06-23 14:39] LABS: Urine Appearance Turbid; Urine Bilirubin Negative (Negative); Urine Blood Negative (Negative); Urine Color Yellow; Urine Glucose Negative (Negative); Urine Ketones Trace (Negative); Urine Nitrite Negative (Negative); Urine Protein 1+(30 mg/dL) (Negative); Urine Specific Gravity 1.027 (1.002-1.030); Urine Urobilinogen Negative (Negative)
[2021-06-23 14:43] LABS: Urine Amorphous Crystals Present (Absent); Urine Bacteria Absent (Absent); Urine Red Blood Cell Trace(0-2/hpf) (Absent); Urine White Blood Cell Absent (Absent)
[2021-06-24] MEDS: NS 0.9% 1000 ml BAG 1,000 ML IV SCH (03:27)
[2021-06-24 07:34] LABS: Magnesium 1.8 mg/dL (1.9-2.7)
[2021-06-24 08:28] LABS: Calcium 7.1 mg/dL (8.6-10.3); EGFR African American 109.8 (>60); EGFR Non-African American 90.7 (>60); Potassium 3.1 mmol/L (3.5-5.0)
[2021-06-24] MEDS ORDERED: Iohexol 300 (CONTRAST) 10 ML SDV IV ONE (08:57)
[2021-06-24] MEDS ORDERED: Magnesium Sulfate IV 3 GM in NS 0.9% 100 ml BAG 100 ML IVPB ONE (09:00)
[2021-06-24] MEDS: KCL 10 MEQ/50 ML IVPREMIX 10 MEQ/50 ML BAG IV SCH ×4 (09:15→14:51)
[2021-06-24] MEDS: Enoxaparin 40 MG/0.4 ML SYR SUBCUT SCH (20:20)
[2021-06-25 06:12] LABS: Hematocrit 31 % (35-47); Hemoglobin 10.4 g/dL (12.0-16.0); Mean Corpuscular HGB Conc 34 g/dL (31-36); Mean Corpuscular Hemoglobin 32 pg (27-31); Mean Corpuscular Volume 94 fL (80-97); Mean Platelet Volume 8.4 fL (7.4-10.4); Platelet Count 236 10^3/uL (150-450); Red Blood Count 3.23 10^6 /uL (3.70-4.87); Red Cell Distribution Width 14 % (10-15); White Blood Count 26.2 10^3/uL (3.5-10.8)
[2021-06-25 06:30] LABS: ABS Basophils 0.1 10^3/ul (0-0.2); ABS Lymphocytes 1.6 10^3/ul (1.0-4.8); ABS Monocytes 1.6 10^3/ul (0-0.8); Eosinophil % 0.1 %; Lymphocyte % 6.3 %
[2021-06-25 06:34] LABS: Albumin 2.7 g/dL (3.2-5.2); Albumin/Globulin Ratio 1.8 (1-3); Calcium 6.9 mg/dL (8.6-10.3); EGFR African American 125.5 (>60); EGFR Non-African American 103.7 (>60); Globulin 1.5 g/dL (2-4); Potassium 3.5 mmol/L (3.5-5.0); Total Bilirubin 0.2 mg/dL (0.2-1.0); Total Protein 4.2 g/dL (6.4-8.9)
[2021-06-25] MEDS: Potassium Chlor 20 meq TAB.ER PO SCH ×2 (12:27→20:21)
[2021-06-25] MEDS: Enoxaparin 40 MG/0.4 ML SYR SUBCUT SCH (20:21)
[2021-06-26 06:12] LABS: Hematocrit 34 % (35-47); Hemoglobin 11.3 g/dL (12.0-16.0); Mean Corpuscular HGB Conc 34 g/dL (31-36); Mean Corpuscular Hemoglobin 32 pg (27-31); Mean Corpuscular Volume 95 fL (80-97); Mean Platelet Volume 8.3 fL (7.4-10.4); Platelet Count 257 10^3/uL (150-450); Red Blood Count 3.53 10^6 /uL (3.70-4.87); Red Cell Distribution Width 14 % (10-15); White Blood Count 19.5 10^3/uL (3.5-10.8)
[2021-06-26 06:35] LABS: Albumin 2.9 g/dL (3.2-5.2); Albumin/Globulin Ratio 1.5 (1-3); Calcium 7.7 mg/dL (8.6-10.3); EGFR African American 118.2 (>60); EGFR Non-African American 97.7 (>60); Globulin 1.9 g/dL (2-4); Potassium 3.7 mmol/L (3.5-5.0); Total Bilirubin 0.3 mg/dL (0.2-1.0); Total Protein 4.8 g/dL (6.4-8.9)
[2021-06-26 08:33] LABS: RBC Morphology Normal (Normal); Toxic Granulation 1+
[2021-06-26 08:34] LABS: ABS Basophils 0.1 10^3/ul (0-0.2); ABS Lymphocytes 1.7 10^3/ul (1.0-4.8); ABS Monocytes 1.7 10^3/ul (0-0.8); ABS Neutrophils 16.1 10^3/ul (1.5-7.7); Eosinophil % 0.1 %; Lymphocyte % 8.7 %
[2021-06-26] MEDS: Potassium Chlor 20 meq TAB.ER PO SCH (08:50)
[2021-06-26 09:36] VITALS: BP 139/60
== END 2021-06-26 11:16 | disposition home or self-care (01) | DRG 392 ==
LOC: CHOA 13:51 → INTOOBSV 18:32 → SSU 18:32
PROVIDERS: ADMIT Internal Medicine Hematology & Oncology; ATTEND Internal Medicine Medical Oncology